=== PATIENT | female | born 2000 | race Asian ===

== ENCOUNTER 2023-01-08 10:50 | Outpatient (REF) | payer MEDICAID, SELFPAY ==
[2023-01-08 13:23] LABS: MANUAL DIFF FLAG NO
[2023-01-08 13:41] LABS: Basophils Percent Auto 0.6 % (0-2); Eosinophils Absolute Auto 0.2 X10*3/uL (0.0-0.4); Eosinophils Percent Auto 3.3 % (0-4); Hematocrit 41.5 % (37.0-47.0); Hemoglobin 13.1 g/dl (12.0-16.0); Imm Gran Abs Auto 0.03 X10*3/uL (0.00-0.03); Imm Gran Pct Auto 0.4 % (0.0-0.4); Lymphocytes Absolute Auto 2.1 X10*3/uL (1.2-4.9); Lymphocytes Percent Auto 28.6 % (20-40); Mean Corpuscular HGB Conc 31.6 g/dl (31.0-35.0); Mean Corpuscular Hemoglobin 27.3 pg (27.0-33.0); Mean Corpuscular Volume 86.5 fL (80.0-98.0); Mean Platelet Volume 10.7 fL (9.4-12.3); Monocytes Absolute Auto 0.5 X10*3/uL (0.1-1.2); Monocytes Percent Auto 7.2 % (2-11); Neutrophils Absolute Auto 4.3 x10*3/uL (2.0-8.3); Neutrophils Percent Auto 59.9 % (45-73); Platelet Count 275 X10*3/uL (160-400); Red Cell Distribution Width 13.2 % (11.0-16.0); White Blood Count 7.2 X10*3/uL (4.8-10.8)
[2023-01-08 14:11] LABS: Estimated Average Glucose 103 mg/dL; Hemoglobin A1c % 5.2 %
[2023-01-08 14:17] LABS: Erythrocyte Sedimentation Rate 14 MM/HR (0-20)
[2023-01-08 14:38] LABS: Alanine Aminotransferase 14 U/L (0-31); Albumin Level 4.1 g/dL (3.5-5.0); Alkaline Phosphatase 97 U/L (39-117); Anion Gap 12 (12-20); Aspartate Amino Transferase 22 U/L (5-31); Bilirubin Total 0.6 mg/dL (0.0-1.0); Blood Urea Nitrogen 8 mg/dL (9-16); C Reactive Protein 0.87 mg/dL (< or = 0.50); Calcium 9.4 mg/dL (8.4-10.2); Carbon Dioxide 25 mmol/L (22-29); Chloride 108 mmol/L (96-108); Cholesterol 166 mg/dL; Estimated Glomerular Filt Rate > 60; Glucose Random 83 mg/dL (60-115); HDL Cholesterol 41 mg/dL; Iron 119 mcg/dL (30-160); LDL Cholesterol Calculated 111 mg/dl; Percent Iron Saturation 37 % (15-50); Potassium 3.9 mmol/L (3.3-5.1); Sodium 141 mmol/L (135-145); Total Iron Binding Capacity 324 mcg/dL (228-428); Total Protein 7.4 g/dL (6.5-8.0); Triglycerides 71 mg/dL; Unsaturated Iron Binding 205 ug/dL
[2023-01-08 14:54] LABS: Ferritin 37 ng/mL (10-122); TSH reflex Free T4 1.06 uIU/mL (0.32-4.0)
[2023-01-08 19:02] LABS: CT PCR NOT DETECTED (Not Detect.); NG PCR NOT DETECTED (Not Detect.)
[2023-01-09 04:35] LABS: Syphilis Screen Nonreactive (Nonreactive)
[2023-01-09 04:39] LABS: ~HepC Num1 0.12 S/CO (0.00-0.79); ~Hepatitis C Antibody Nonreactive (Nonreactive)
[2023-01-09 04:40] LABS: HBS Num1 0.51 mIU/mL (0-7.99); HBc Num1 0.31 S/CO (0.00-0.79); HBsAGNum1 0.42 S/CO (0.00-0.99); HIV AB/AG Nonreactive (Nonreactive); HIV Num 1 0.06 S/CO (0.00-0.99); Hepatitis B Core Antibody Nonreactive (Nonreactive); Hepatitis B Surface Antigen Negative (Negative); ~Hepatitis B Surface Antibody NONREACTIVE (Nonreactive)
[2023-01-10 21:18] LABS: TS Negative Control Passed; TS Panel A 0; TS Panel B 1; TS Positive Control Passed; TSpotTB Negative (Negative)
[2023-01-12 01:34] LABS: VITAMIN D (1,25 OH) D3 51 pg/mL; Vit D (1,25-Dihydroxy) Total 51 pg/mL (18-72); Vitamin D (1,25 OH) D2 <8 pg/mL
[2023-01-12 13:18] LABS: Anti Nuclear Antibody Screen NEGATIVE (NEGATIVE)
== END 2023-01-08 10:51 | disposition home or self-care (01) ==
LOC: HO.HHCL 10:50
PROVIDERS: Visit Provider Student in an Organized Health Care Education/Training Program
DX: Z00.00 Encounter for general adult medical examination without abnormal findings (principal); Z11.4 Encounter for screening for human immunodeficiency virus [HIV]; Z11.1 Encounter for screening for respiratory tuberculosis; Z86.19 Personal history of other infectious and parasitic diseases; Z20.2 Contact with and (suspected) exposure to infections with a predominantly sexual mode of transmission; E66.9 Obesity, unspecified; Z13.220 Encounter for screening for lipoid disorders; D64.9 Anemia, unspecified; Z13.1 Encounter for screening for diabetes mellitus; Z13.29 Encounter for screening for other suspected endocrine disorder
CPT/HCPCS: 0353U; 80053; 80061; 82652; 82728; 83036; 83540; 84443; 85025; 85652; 86038; 86140; 86481; 86704; 86706; 86780; 86803; 87340; 87389

== ENCOUNTER 2023-01-09 23:30 | Outpatient (REF) | payer MEDICAID, SELFPAY | END 2023-01-09 23:31 | disposition home or self-care (01) | LOC: HO.HHCLNP 23:30 | PROVIDERS: Visit Provider Student in an Organized Health Care Education/Training Program | DX: Z00.00 Encounter for general adult medical examination without abnormal findings (principal) | CPT/HCPCS: 87177; 87209 ==

== ENCOUNTER 2023-02-06 16:11 | Outpatient (REF) | payer MEDICAID, SELFPAY ==
[2023-02-07 07:19] LABS: CT PCR NOT DETECTED (Not Detect.); NG PCR NOT DETECTED (Not Detect.)
[2023-02-07 15:12] LABS: BV Int Neg Control Negative (Negative); BV Int Pos Control Positive (Positive)
== END 2023-02-06 16:12 | disposition home or self-care (01) ==
LOC: HO.HHCLNP 16:11
PROVIDERS: Visit Provider Student in an Organized Health Care Education/Training Program
DX: R10.2 Pelvic and perineal pain (principal); Z20.2 Contact with and (suspected) exposure to infections with a predominantly sexual mode of transmission
CPT/HCPCS: 0353U; 87480; 87510; 87660

== ENCOUNTER 2023-02-08 14:19 | Outpatient (REF) | payer MEDICAID, SELFPAY ==
[2023-02-08 16:25] LABS: C Reactive Protein 0.92 mg/dL (< or = 0.50)
[2023-02-08 16:28] LABS: Rheumatoid Factor < 13.0 IU/mL (<15.0)
[2023-02-08 16:39] LABS: Appearance Urine Clear; Color Urine Yellow; Glucose Urine UA Negative (Negative); Leukocyte Esterase Urine Trace (Negative); Nitrite Urine Negative (Negative); PH 6.5 (5.0-9.0); UMIC TRIGGER UACC YES; Urine Blood Negative (Negative); Urine Ketones Negative (Negative); Urine Protein Negative (Neg-Trace)
[2023-02-08 16:46] LABS: Bacteria Urine None Seen (None Seen); Hyaline Casts Urine 0-2 /LPF (0-2); RBC Urine 0-2 /HPF (0-2); Squamous Epithelial Cell Urine 0-2 /HPF (0-2); WBC Urine 0-5 /HPF (0-5)
[2023-02-09 15:28] LABS: CT PCR NOT DETECTED (Not Detect.); NG PCR NOT DETECTED (Not Detect.)
[2023-02-13 09:28] LABS: Cyclic Citrullinated Peptide <16 UNITS
== END 2023-02-08 14:20 | disposition home or self-care (01) ==
LOC: HO.HHCL 14:19
PROVIDERS: Visit Provider Student in an Organized Health Care Education/Training Program
DX: R10.2 Pelvic and perineal pain (principal); M25.50 Pain in unspecified joint
CPT/HCPCS: 0353U; 81001; 86140; 86200; 86431; 87177; 87209

== ENCOUNTER 2023-02-23 14:37 | Outpatient (REF) | payer MEDICAID, SELFPAY ==
--- NOTE | ~2023-02-23 | US_ITS ---
EXAMINATION: US PELVIS CLINICAL INFORMATION: Pelvic pain. COMPARISON: None available. TECHNIQUE: Ultrasound of the pelvis is performed using both transabdominal transducers. The patient declined transvaginal evaluation. FINDINGS: Uterus: The uterus is anteverted and measures 8.5 x 4.4 x 5.5 cm. The double wall endometrial thickness is 4 mm. The uterus is smooth in contour and has normal myometrial echogenicity. No visible fibroid. Adnexa: The right ovary measures 3.0 x 2.1 x 1.9 cm, volume 6 mL. Left ovary measures 2.2 x 1.9 x 2.1 cm, volume 5 mL. The ovaries appear normal. Normal color Doppler is seen. No pelvic free fluid. US/US pelvic and transvaginal IMPRESSION: Unremarkable pelvic ultrasound.
== END 2023-02-23 14:38 | disposition home or self-care (01) ==
LOC: HO.US 14:37
PROVIDERS: PCP Student in an Organized Health Care Education/Training Program; Visit Provider Student in an Organized Health Care Education/Training Program
DX: R10.2 Pelvic and perineal pain (principal)
CPT/HCPCS: 76830; 76856

== ENCOUNTER 2023-03-12 16:02 | Outpatient (REF) | payer MEDICAID, SELFPAY | END 2023-03-12 16:03 | disposition home or self-care (01) | LOC: HO.HHCLNP 16:02 | PROVIDERS: Visit Provider Advanced Practice Midwife | DX: Z12.4 Encounter for screening for malignant neoplasm of cervix (principal); R35.0 Frequency of micturition | CPT/HCPCS: 87086; 88142 ==

== ENCOUNTER 2023-03-30 09:14 | Outpatient (AMB) | payer MEDICAID, SELFPAY ==
--- NOTE | 2023-03-30 09:16 | MHC.OFFVIS ---
Intake Vital Signs 03/30/23 09:17 Height 4 ft 11.33 in Weight 156 lb 4.924 oz BMI 31.2 BP 108/62 Blood Pressure Location Lt brachial Position Sitting Pulse 65 Pulse Source Pulse Oximeter Temp 97.2 F Temp Source Skin Pulse Oximetry (%) 97 Intake Visit Reasons: joint Pain Intake Note: New patient presents to office today for joint pain. Per incoming records, saw oph Dec 2022. 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 Robles is a pleasant 22yoF, [id number] mom with a 2 year daughter, who migrated from [place] 2 years ago is here for evaluation of arthralgia, feeling run down and an elevated CRP. She is accompanied by her and daughter. She reports that she has been increasingly achy for the past year, feeling like I have been beaten and very tired like I have done a lot of hard work . The patient says it starts from the moment she wakes up. She shares that she is in the house most days taking care of her daughter and doing housework but is far less active compared to when she was in [place]. She has been prescribed melatonin for sleep aid, escitalopram for depression. She endorses mild effectiveness with both. The patient denies Raynaud's phenomenon, butterfly rash on face or other rashes; denies photosensitivity - getting sick or developing a rash from being out in the sun; denies blood or froth in urine; patient denies hx of SOB, chest pain. Patient denies hx of Carditis or Pleuritis. Patient denies any history of DVT/PE. She has had 1 in total and never had o take aspirin or a blood thinner during the . She denies fevers, unexplained weight-loss or weight-gain. While she endorses increase hair shedding, it does not fall out in clumps. The patient denies dry, itchy eyes, red burning eyes needing steroids to treat. She also denies dry mouth, mouth sores or ulcers; nose bleed; ringing in the ear. She does report feeling very thirsty occasionally, like once a month and also notices more frequent urination. She denies abdominal pain, blood or mucous in stool; nausea, vomiting and diarrhea , difficulty swallowing and heartburn. She says no to morning stiffness lasting more than 10 mins. Malignancy screening: denies personal cancer hx. [facility] Medical History (Updated 04/02/23 @ 15:15 by Charlene Garcia [facility]) Fatigue due to depression History of Helicobacter pylori infection Increased urinary frequency Obesity Lumbar pain Mild depression Arthralgia Myalgia Migraines Family History (Updated 03/30/23 @ 09:21 by KYLE Waters) Mother Hypertension Diabetes Father No problems noted. Social History (Updated 03/30/23 @ 09:20 by KYLE Waters) Household Members: Spouse and Family Alcohol intake: never Patient Tobacco Use Status: Never used Tobacco Current occupational status: unemployed Review of Systems Const All systems reviewed & are unremarkable except as noted in HPI and below Physical Exam Vital Signs: Last Vital Signs Temp 97.2 F 03/30/23 09:17 Pulse 65 03/30/23 09:17 BP 108/62 03/30/23 09:17 Pulse Ox 97 03/30/23 09:17 BMI result Body Mass Index 31.2 APPEARANCE: Patient in no acute distress EYES no redness, pupils equal and reactive to light, eyelids normal EARS:? External ear normal, canal clear and tympanic membrane normal. NOSE/SINUS:? Airflow through both nares, no nasal discharge, no bleeding THROAT:? Oral mucosa moist, no ulcerations NECK:? No thyromegaly or masses, no adenopathy, trachea midline. HEART:? Regular rhythm, S1-S2 heard, no murmurs, rubs or gallops. LUNG:? Clear to percussion and auscultation ABD:? Normal bowel sounds, no organomegaly, masses or tenderness. EXTREMITIES:? No edema, no calf tenderness, normal peripheral pulses. NEURO:? Oriented and alert x3.? No focal weakness.? Reflexes symmetric.? Gait normal. SKIN:? There are no skin lesions evident. No objective signs of Raynaud's phenomenon. JOINT EXAM: ?? Cervical Spine:.? Full range of motion without pain; no tenderness. Thoracic Spine:.? No scoliosis.? No tenderness on palpation. Lumbar Spine:.? Alignment normal.? Full range of motion without pain, no tenderness. Chest Wall:.? No tenderness, swelling, increased warmth or erythema. Hands:.? Normal pain-free range of motion without tenderness, swelling, increased warmth or erythema. Able to make a full fist and has a good regional sales manager strength. Wrists:.? Normal pain-free range of motion without tenderness, swelling, increased warmth or erythema. Elbows:. Normal pain-free range of motion without tenderness, swelling, increased warmth or erythema. Shoulders:.? Full range of motion without pain. No tenderness, weakness, swelling, increased warmth or erythema. Hips:.? Full range of motion without pain. Hip bursa:.? No tenderness. Knees:.?? Normal pain-free range of motion without tenderness, swelling, increased warmth or erythema.? There is no effusion or crepitation Ankles:.? Normal pain-free range of motion without tenderness, swelling, increased warmth or erythema. Feet:.? Normal pain-free range of motion without tenderness, swelling, increased warmth or erythema. Tender points:? No tenderness to digital palpation at the occiput, trapezius, second rib, lateral epicondyle, knees, greater trochanter and gluteal area bilaterally. Results Reviewed Results Reviewed: Laboratory Tests 01/08/23 02/08/23 02/08/23 11:10 14:30 14:31 C-Reactive Protein 0.87 H 0.92 H Rheumatoid Factor < 13.0 Cycl Citrul Peptide IgG <16 cc: Jacqueline Vicente MD~ EXAMINATION: US PELVIS CLINICAL INFORMATION: Pelvic pain. COMPARISON: None available. TECHNIQUE: Ultrasound of the pelvis is performed using both transabdominal transducers. The patient declined transvaginal evaluation. FINDINGS: Uterus: The uterus is anteverted and measures 8.5 x 4.4 x 5.5 cm. The double wall endometrial thickness is 4 mm. The uterus is smooth in contour and has normal myometrial echogenicity. No visible fibroid. Adnexa: The right ovary measures 3.0 x 2.1 x 1.9 cm, volume 6 mL. Left ovary measures 2.2 x 1.9 x 2.1 cm, volume 5 mL. The ovaries appear normal. Normal color Doppler is seen. No pelvic free fluid. US/US pelvic and transvaginal IMPRESSION: Unremarkable pelvic ultrasound. Laboratory Tests 01/08/23 11:10 WBC 7.2 RBC 4.80 Hgb 13.1 Hct 41.5 1,25 Dihydroxy Vit D 51 1,25 Dihydroxy Vit D3 51 TSH 1.06 BRENNA Screen NEGATIVE Assessment & Plan Assessment & Plan (1) Myalgia: Code(s): M79.10 - Myalgia, unspecified site (2) Fatigue due to depression: Code(s): F32.A - Depression, unspecified; R53.83 - Other fatigue Plan #Myalgia:Ms. Rowe is here for evaluation of her arthralgia, myalgia and fatigue. At this time, upon careful review of her history, diagnostics and physical examination, there is not a clear picture of an autoimmune or inflammatory pathology. However, she does have a mildly elevated CRP for Jan 08 2023 which trended up on February 08, 2023. This suggest that there is some pathology on board. She denies infectious processes - I can also see that the WBC and UA was WNL and so was her STD panel. She has no weakness on PE, no warmth, swelling or redness to joints and she denies rashes. Given her run-down feeling, lack of energy and arthralgia, this could be an SLE prodrome, but the BRENNA is negative as of 12/2022 and also the ESR, RF and CCP. An ultrasound of the Pelvic was unremarkable. This was done because patient had concerns for lower back pain. It would have been reasonable to also consider that perhaps her symptoms could be post-vaccine syndrome but she says that the fatigue started at least 1 year after her last COVID vaccine. Given her myalgia, achiness and fatigue I will prescribe her a course of Prednisone and revaluate for imrpovement in 2 weeks. #Fatigue/Depression: Fatigue can be a result of things such as Anemia, respiratory, endocrine or even cardiac concerns none of which is evident or supported by the labs - CBC, Iron Studies, CMP and TSH and HgBA1C within normal limits. However, given her generalize feeling of being run-down a it is reasonable to check for muscle myopathy. I will repeat the CRP and also check CK and aldolase and ESR. Fatigue can also be due to depression. Patient maybe have challenges with adjusting to life since her migration. She does seem more livelier when she talks about life in [place]. She has been put on escitalopram by PCP and will be following up with therapist. I have discussed with patient the side effects of Prednisone to include increase appetite and energy. 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 I have spent 45 minutes with patient reviewing history, and discussing symptoms, then documenting. Orders: Orders Erythrocyte Sedimentation Rate 03/30/23 M79.10 - Myalgia, unspecified site Creatine Kinase Total 03/30/23 M79.10 - Myalgia, unspecified site C Reactive Protein 03/30/23 M79.10 - Myalgia, unspecified site Aldolase 03/30/23 M79.10 - Myalgia, unspecified site Medications: New prednisone see taper instructions 2 tablets per day for 7 days then 1 tablet per days for 7 days then stop 5 mg PO DIRECTED 30 tabs 0RF Coding Level of Care Code New Pt Level 4 (30698) Diagnoses Myalgia M79.10 Fatigue due to depression F32.A; R53.83
[2023-03-30 09:17] VITALS: BP 108/62; PULSE 65; TEMP 36.2; O2SAT 97; BMI 31.2
== END 2023-03-30 10:04 | disposition home or self-care (01) ==
LOC: HO.RHE 09:14
PROVIDERS: PCP Student in an Organized Health Care Education/Training Program; Referring Provider Student in an Organized Health Care Education/Training Program; Visit Provider Nurse Practitioner Family
DX: M79.10 Myalgia, unspecified site (principal); R53.83 Other fatigue
CPT/HCPCS: 99204

== ENCOUNTER → 2023-03-30 09:14 | Outpatient (BNVA) | payer MEDICAID, SELFPAY | PROVIDERS: PCP Student in an Organized Health Care Education/Training Program; Referring Provider Student in an Organized Health Care Education/Training Program; Visit Provider Nurse Practitioner Family | DX: M79.10 Myalgia, unspecified site (principal); F32.A Depression, unspecified; R53.83 Other fatigue | CPT/HCPCS: 36415; 82085; 82550; 85652; 86140; 99212 ==

== ENCOUNTER 2023-03-30 10:16 | Outpatient (REF) | payer MEDICAID, SELFPAY ==
[2023-03-30 13:10] LABS: C Reactive Protein 0.46 mg/dL (< or = 0.50)
[2023-03-30 13:45] LABS: Erythrocyte Sedimentation Rate 11 MM/HR (0-20)
[2023-04-04 11:23] LABS: Aldolase 4.4 U/L (<=8.1)
== END 2023-03-30 10:17 | disposition home or self-care (01) ==
LOC: HO.10HDL 10:16
PROVIDERS: Visit Provider Nurse Practitioner Family
DX: M79.10 Myalgia, unspecified site (principal)
CPT/HCPCS: 36415; 82085; 82550; 85652; 86140

== ENCOUNTER 2023-04-18 13:57 | Outpatient (AMB) | payer MEDICAID, SELFPAY ==
[2023-04-18 14:01] VITALS: BP 102/58; PULSE 65; TEMP 36.1; O2SAT 98; BMI 32.1
--- NOTE | 2023-04-18 14:01 | MHC.OFFVIS ---
Intake Vital Signs 04/18/23 14:01 Height 4 ft 11 in Weight 159 lb 2.78 oz BMI 32.1 BP 102/58 L Blood Pressure Location Rt brachial Position Sitting Pulse 65 Pulse Source Pulse Oximeter Temp 97.0 F Temp Source Skin Pulse Oximetry (%) 98 Oxygen Delivery Method Room Air Intake Visit Reasons: Joint Pain Intake Note: Patient last seen 03/30/23, presents today to follow up on joint pain. 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 Robles has returned for follow-up of malaise and arthralgias. She states that the prednisone was not helpful. She continues to feel tired. Patient states it has not worsened but has essentially stayed the same. Her CRP has normalized. Patient denies any new symptoms since last visit. TSH WNL Prior Visit: 03/30/2023 Mrs. Robles is a pleasant 22yoF, [id number] mom with a 2 year daughter, who migrated from [place] 2 years ago is here for evaluation of arthralgia, feeling run down and an elevated CRP. She is accompanied by her and daughter. She reports that she has been increasingly achy for the past year, feeling like I have been beaten and very tired like I have done a lot of hard work . The patient says it starts from the moment she wakes up. She shares that she is in the house most days taking care of her daughter and doing housework but is far less active compared to when she was in [place]. She has been prescribed melatonin for sleep aid, escitalopram for depression. She endorses mild effectiveness with both. The patient denies Raynaud's phenomenon, butterfly rash on face or other rashes; denies photosensitivity - getting sick or developing a rash from being out in the sun; denies blood or froth in urine; patient denies hx of SOB, chest pain. Patient denies hx of Carditis or Pleuritis. Patient denies any history of DVT/PE. She has had 1 in total and never had o take aspirin or a blood thinner during the . She denies fevers, unexplained weight-loss or weight-gain. While she endorses increase hair shedding, it does not fall out in clumps. The patient denies dry, itchy eyes, red burning eyes needing steroids to treat. She also denies dry mouth, mouth sores or ulcers; nose bleed; ringing in the ear. She does report feeling very thirsty occasionally, like once a month and also notices more frequent urination. She denies abdominal pain, blood or mucous in stool; nausea, vomiting and diarrhea , difficulty swallowing and heartburn. She says no to morning stiffness lasting more than 10 mins. Malignancy screening: denies personal cancer hx. [facility] Medical History (Updated 04/18/23 @ 14:20 by Charlene Garcia [facility]) Elevated CK Fatigue due to depression History of Helicobacter pylori infection Increased urinary frequency Obesity Lumbar pain Mild depression Arthralgia Myalgia Migraines Family History Mother Hypertension Diabetes Father No problems noted. Household Members: Spouse and Family Alcohol intake: never Patient Tobacco Use Status: Never used Tobacco Current occupational status: unemployed Physical Exam Vital Signs: Last Vital Signs Temp 97.0 F 04/18/23 14:01 Pulse 65 04/18/23 14:01 BP 102/58 L 04/18/23 14:01 Pulse Ox 98 04/18/23 14:01 Oxygen Delivery Method Room Air 04/18/23 14:01 BMI result Body Mass Index 32.1 APPEARANCE: Patient in no acute distress NECK:? No thyromegaly or masses, no adenopathy, trachea midline. HEART:? Regular rhythm, S1-S2 heard, no murmurs, rubs or gallops. LUNG:? Clear to percussion and auscultation EXTREMITIES:? No edema, no calf tenderness, normal peripheral pulses. No erythema, swelling or warmth of joints NEURO:? Oriented and alert x3.? No focal weakness.? Reflexes symmetric.? Gait normal. SKIN:? There are no skin lesions evident. No objective signs of Raynaud's phenomenon. Tender points:? No tenderness to digital palpation at the occiput, trapezius, second rib, lateral epicondyle, knees, greater trochanter and gluteal area bilaterally. Assessment & Plan Assessment & Plan (1) Myalgia: Code(s): M79.10 - Myalgia, unspecified site (2) Elevated CK: Code(s): R74.8 - Abnormal levels of other serum enzymes (3) Fatigue due to depression: Code(s): F32.A - Depression, unspecified; R53.83 - Other fatigue Plan #Myalgia and Elevated CK:Ms. Whitehead on a 22-year-old female here for follow-up of myalgia and fatigue. After careful review of medical history, diagnostics, physical examination I do not think her malaise and fatigue caused by an underlying autoimmune or inflammatory etiology. Her rheumatologic/labs were grossly within normal limits. She had a mildly elevated CK at 198 (140). An elevated CK can be caused by strenuous muscle activity, acute illness. to The patient also said that she was having colds and fevers in January 2023, during the time the CRP was elevated. Not withstanding will be careful to follow the CK to determine if this is a down trend, uptrend or acute finding. An elevated CK can also be concerning for onset of myopathies - she had no muscle tenderness, weakness or skin rashes on PE. #Fatigue: Discussed with patient that myalgia and fatigue can also be a symptom of depression and could factors of her adjustment. Encouraged her to find ways to help improve her moods and would be beneficial to discuss with a therapist. We will follow up in 6 months. I will obtain CK labs in 1 month. That should be enough time off Prednsione Orders: Orders Erythrocyte Sedimentation Rate 1 Month M79.10 - Myalgia, unspecified site, R74.8 - Abnormal levels of other serum enzymes C Reactive Protein 1 Month M79.10 - Myalgia, unspecified site, R74.8 - Abnormal levels of other serum enzymes CK, Total+Isoenzymes, Serum 1 Month M79.10 - Myalgia, unspecified site, R74.8 - Abnormal levels of other serum enzymes Other Ref Test - Misc 1 Month M79.10 - Myalgia, unspecified site, R74.8 - Abnormal levels of other serum enzymes Coding Level of Care Code Est Pt Level 3 (33450) Diagnoses Myalgia M79.10 Elevated CK R74.8 Fatigue due to depression F32.A; R53.83
== END 2023-04-18 14:26 | disposition home or self-care (01) ==
PROVIDERS: PCP Student in an Organized Health Care Education/Training Program; Visit Provider Nurse Practitioner Family
DX: M79.10 Myalgia, unspecified site (principal); R74.8 Abnormal levels of other serum enzymes; F32.A Depression, unspecified; R53.83 Other fatigue
CPT/HCPCS: 99213

== ENCOUNTER → 2023-04-18 13:57 | Outpatient (BNVA) | payer MEDICAID, SELFPAY | PROVIDERS: PCP Student in an Organized Health Care Education/Training Program; Visit Provider Nurse Practitioner Family | DX: R74.8 Abnormal levels of other serum enzymes (principal); M79.10 Myalgia, unspecified site; R53.83 Other fatigue; F32.A Depression, unspecified | CPT/HCPCS: 99212 ==

== ENCOUNTER 2023-05-16 18:01 | Outpatient (REF) | payer MEDICAID, SELFPAY ==
[2023-05-18 13:43] LABS: H Pylori Breath Test Negative (Negative)
== END 2023-05-16 18:02 | disposition home or self-care (01) ==
LOC: HO.HHCL 18:01
PROVIDERS: Visit Provider Student in an Organized Health Care Education/Training Program
DX: Z86.19 Personal history of other infectious and parasitic diseases (principal); Z11.1 Encounter for screening for respiratory tuberculosis
CPT/HCPCS: 83013

== ENCOUNTER 2023-07-19 11:04 | Outpatient (REF) | payer MEDICAID, SELFPAY ==
[2023-07-19 15:17] LABS: CT PCR NOT DETECTED (Not Detect.); NG PCR NOT DETECTED (Not Detect.)
[2023-07-21 22:53] LABS: TS Negative Control Passed; TS Panel A 0; TS Panel B 0; TS Positive Control Passed; TSpotTB Negative (Negative)
[2023-07-23 12:19] LABS: RPR Rapid Plasma Reagin NON-REACTIVE (NON-REACTIVE)
== END 2023-07-19 11:05 | disposition home or self-care (01) ==
LOC: HO.10HDL 11:04
PROVIDERS: Visit Provider Internal Medicine
DX: Z02.89 Encounter for other administrative examinations (principal)
CPT/HCPCS: 0353U; 86481; 86592

== ENCOUNTER 2024-01-23 10:55 | Outpatient (REF) | payer MEDICAID, SELFPAY ==
[2024-01-23 13:32] LABS: Hematocrit 40.9 % (37.0-47.0); Hemoglobin 13.2 g/dl (12.0-16.0); Mean Corpuscular HGB Conc 32.3 g/dl (31.0-35.0); Mean Corpuscular Hemoglobin 27.3 pg (27.0-33.0); Mean Corpuscular Volume 84.7 fL (80.0-98.0); Mean Platelet Volume 11.7 fL (9.4-12.3); Platelet Count 234 X10*3/uL (160-400); Red Blood Count 4.83 X10*6/uL (4.20-5.50); White Blood Count 5.8 X10*3/uL (4.8-10.8)
[2024-01-23 13:52] LABS: Alanine Aminotransferase 15 U/L (0-31); Albumin Level 4.3 g/dL (3.5-5.0); Alkaline Phosphatase 71 U/L (39-117); Anion Gap 12 (12-20); Aspartate Amino Transferase 23 U/L (5-31); Bilirubin Total 0.3 mg/dL (0.0-1.0); Blood Urea Nitrogen 8 mg/dL (9-16); C Reactive Protein 0.13 mg/dL (< or = 0.50); Calcium 9.7 mg/dL (8.4-10.2); Carbon Dioxide 24 mmol/L (22-29); Chloride 108 mmol/L (96-108); Cholesterol 143 mg/dL (<200); Estimated Glomerular Filt Rate > 60; Glucose Random 88 mg/dL (60-115); HDL Cholesterol 38 mg/dL (>40); LDL Cholesterol Calculated 95 mg/dL (<100); Sodium 140 mmol/L (135-145); Total Protein 7.4 g/dL (6.5-8.0); Triglycerides 53 mg/dL (<150)
[2024-01-23 14:07] LABS: Estimated Average Glucose 103 mg/dL; Hemoglobin A1c % 5.2 % (<6.0)
[2024-01-23 14:14] LABS: Erythrocyte Sedimentation Rate 7 MM/HR (0-20)
[2024-01-23 14:19] LABS: TSH reflex Free T4 0.69 uIU/mL (0.32-4.0); Vitamin D 25-OH Total 31.2 ng/mL (>30)
[2024-01-23 15:21] LABS: CT PCR NOT DETECTED (Not Detect.); NG PCR NOT DETECTED (Not Detect.)
[2024-01-24 03:57] LABS: Syphilis Screen Nonreactive (Nonreactive)
[2024-01-24 04:26] LABS: HBS Num1 > 1000.00 mIU/mL (0-7.99); HBc Num1 0.19 S/CO (0.00-0.79); HBsAGNum1 0.24 S/CO (0.00-0.99); HIV AB/AG Nonreactive (Nonreactive); HIV Num 1 0.07 S/CO (0.00-0.99); Hepatitis B Core Antibody Nonreactive (Nonreactive); Hepatitis B Surface Antigen Negative (Negative); ~HepC Num1 0.13 S/CO (0.00-0.79); ~Hepatitis B Surface Antibody REACTIVE (Nonreactive); ~Hepatitis C Antibody Nonreactive (Nonreactive)
[2024-01-28 14:24] LABS: CK-BB None Detected (None Detected); CK-MB 0 % (<5); CK-MM 100 % (95-100); Creatine Kinase,Total,Serum 66 U/L (29-143)
== END 2024-01-23 10:56 | disposition home or self-care (01) ==
LOC: HO.HHCL 10:55
PROVIDERS: Visit Provider Student in an Organized Health Care Education/Training Program
DX: Z00.00 Encounter for general adult medical examination without abnormal findings (principal); M54.50 Low back pain, unspecified
CPT/HCPCS: 36415; 80053; 80061; 82306; 82552; 83036; 84443; 85027; 85652; 86140; 86704; 86706; 86780; 86803; 87340; 87389; 87491; 87591

== ENCOUNTER 2024-03-20 11:32 | Outpatient (REF) | payer MEDICAID, SELFPAY ==
[2024-03-20 14:52] LABS: Folate 14.2 ng/mL (> or = 4.0); Vitamin B12 493 pg/mL (200-900)
== END 2024-03-20 11:33 | disposition home or self-care (01) ==
LOC: HO.HHCL 11:32
PROVIDERS: Visit Provider Student in an Organized Health Care Education/Training Program
DX: R41.3 Other amnesia (principal)
CPT/HCPCS: 36415; 82607; 82746

== ENCOUNTER 2024-03-26 09:28 | Outpatient (REF) | payer MEDICAID, SELFPAY ==
--- NOTE | ~2024-03-26 | CT_ITS ---
EXAMINATION: CT HEAD WITHOUT CONTRAST CLINICAL INFORMATION: Headache. Memory loss. COMPARISON: None available. TECHNIQUE: Contiguous axial imaging was performed from the skull base to vertex without intravenous administration of contrast. This CT examination was performed using dose optimization techniques as appropriate, variously including the following: *Automated exposure control. *Adjustment of mA and/or kV according to patient size (this includes techniques or standardized protocols for targeted exams where dose is matched to indication/reason for exam; i.e. extremities or head). *Use of iterative reconstruction technique. DLP: 720 mGy-cm FINDINGS: There is no evidence of acute intracranial hemorrhage or edematous territorial infarction. [place] Dios-white matter differentiation is preserved. There is no abnormal attenuation within the brain parenchyma. The ventricles are normal in morphology and size. No evidence for obstructive hydrocephalus. The suprasellar cistern remains widely patent. Normal positioning of the cerebellar tonsils. No abnormal mass effect or midline shift. No extra-axial fluid collections. No acute soft tissue or osseous abnormalities. Mild mucosal thickening of the paranasal sinuses. Right-sided maxine bullosa. Moderate leftward nasal septal deviation. The mastoid air cells and middle ear cavities are clear. CT/CT head/brain wo IV con IMPRESSION: No evidence of acute intracranial hemorrhage or edematous territorial infarction. Electronically signed by: Raghav Bhardwaj DO 05/07/2024 05:50 AM EST
== END 2024-03-26 09:29 | disposition home or self-care (01) ==
LOC: HO.CT 09:28
PROVIDERS: PCP Student in an Organized Health Care Education/Training Program; Visit Provider Student in an Organized Health Care Education/Training Program
DX: R41.3 Other amnesia (principal); R51.9 Headache, unspecified
CPT/HCPCS: 70450

== ENCOUNTER 2024-06-05 11:28 | Outpatient (REF) | payer MEDICAID, SELFPAY ==
[2024-06-05 13:51] LABS: HCG Quantitative 1710 mIU/mL
== END 2024-06-05 11:29 | disposition home or self-care (01) ==
LOC: HO.HHCL 11:28
PROVIDERS: Visit Provider Advanced Practice Midwife
DX: Z32.00 Encounter for pregnancy test, result unknown (principal)
CPT/HCPCS: 36415; 84702